=== PATIENT | female | born 2000 | race Caucasian/White ===

== ENCOUNTER 2022-09-27 22:01 | Emergency (ER) | payer OTHER ==
[~2022-09-27] VITALS: Ht 157.5 cm; Wt 60.0 kg
[2022-09-27 23:34] LABS: BASOPHILS % 0.6 % (0.0-2.0); EOSINOPHILS % 1.6 % (0.0-5.0); HEMOGLOBIN. 12.5 g/dL (12.0-16.0); LYMPHOCYTES % 11.4 % (20.0-50.0); MEAN CORPUSCULAR HEMOGLOBIN 28.3 pg (28.0-32.0); MEAN CORPUSCULAR VOLUME 86.4 fL (81.0-99.0); MEAN PLATELET VOLUME 6.9 fl (7.4-10.4); MONOCYTES % 5.7 % (2.0-8.0); NEUTROPHILS % 80.7 % (40.0-76.0); PLATELET 356 x1000/uL (130-400)
[2022-09-27 23:48] LABS: CHLORIDE 104 mEq/L (98-107)
[2022-09-27 23:54] LABS: ETHANOL BLOOD < 10 mg/dL
[2022-09-28 00:03] LABS: HCG SCREEN NEGATIVE
[2022-09-28 02:06] VITALS: BP 110/74
[2022-09-28] MEDS ORDERED: NALO4SPR BOTHNSTRLS (02:12)
== END 2022-09-28 02:18 | disposition home or self-care (01) ==
LOC: ER 22:01
DX: R41.82 Altered mental status, unspecified (principal); T40.2X1A Poisoning by other opioids, accidental (unintentional), initial encounter; J45.909 Unspecified asthma, uncomplicated; Y92.89 Other specified places as the place of occurrence of the external cause
CPT/HCPCS: 36415; 71045; 80053; 80320; 84703; 85025; 99284; G0480